=== PATIENT | male | born 1955 | race Caucasian/White ===

== ENCOUNTER 2017-06-28 06:06 | Day surgery (SDC) | payer OTHER ==
[2017-06-28] MEDS ORDERED: FENTAnyl 50 MCG/ML VIAL (08:38)
[2017-06-28] MEDS ORDERED: MIDAZOLAM 1 MG/ML 2 ML INJ ×2 (08:38)
== END 2017-06-28 12:21 | disposition home or self-care (01) ==
LOC: GIL 06:06
DX: Z12.11 Encounter for screening for malignant neoplasm of colon (principal); K64.8 Other hemorrhoids
CPT/HCPCS: 45378